=== PATIENT | male | born 1975 | race Caucasian/White ===

== ENCOUNTER 2025-01-21 08:40 | Day surgery (SDC) | payer BC ==
[2025-01-21] MEDS ORDERED: Sodium Chloride 0.9% 10 ML Syringe FLUSH PRN (08:45)
[2025-01-21] MEDS: Lactated Ringers 1,000 ML IV SCH (09:10)
[2025-01-21] MEDS ORDERED: Propofol 200 MG/20 ML SDV ONE (09:26)
[2025-01-21] MEDS ORDERED: Midazolam 1 MG/ML 2 ML SDV ONE (09:26)
== END 2025-01-21 12:00 | disposition home or self-care (01) ==
LOC: KA.SDS 08:40
PROVIDERS: ATTEND Family Medicine
DX: Z12.11 Encounter for screening for malignant neoplasm of colon (principal); K64.8 Other hemorrhoids; F41.1 Generalized anxiety disorder; Z80.0 Family history of malignant neoplasm of digestive organs; Z79.899 Other long term (current) drug therapy
CPT/HCPCS: 00811; J2250; J2704; J7120